=== PATIENT | female | born 1995 | race Caucasian/White ===

== ENCOUNTER 2022-11-28 21:47 | Emergency (ER) | payer OTHER ==
[~2022-11-28] VITALS: Ht 152.4 cm; Wt 92.1 kg
[2022-11-28] MEDS ORDERED: BACTRIM 400-801 EACH PO (22:06)
[2022-11-28] MEDS ORDERED: CEPHALEXIN500 MG PO (22:06)
[2022-11-28 22:09] VITALS: BP 129/74
== END 2022-11-28 22:09 | disposition home or self-care (01) ==
LOC: FSED 21:52
DX: L73.9 Follicular disorder, unspecified (principal)
CPT/HCPCS: 10060; 99283

== ENCOUNTER 2023-02-23 01:48 | Emergency (ER) | payer OTHER ==
[~2023-02-23] VITALS: Ht 149.9 cm; Wt 90.7 kg
[~2023-02-23 01:48] MED LIST: BACTRIM 400-801 EACH PO; CEPHALEXIN500 MG PO
[2023-02-23] MEDS ORDERED: IOPAMIDOL 370 MG/ML 100 ML INFUS..BTL INJ ONE (02:18)
[2023-02-23] MEDS ORDERED: ACETAMINOPHEN 325 MG TAB PO ONE (02:30)
[2023-02-23] MEDS ORDERED: ACETAMINOPHEN 325 MG TAB ONE (02:35)
[2023-02-23 04:30] VITALS: BP 124/76
== END 2023-02-23 04:30 | disposition home or self-care (01) ==
LOC: FSED 01:53
DX: S00.83XA Contusion of other part of head, initial encounter (principal); R07.89 Other chest pain; R10.10 Upper abdominal pain, unspecified; R51.9 Headache, unspecified; M25.531 Pain in right wrist; V43.52XA Car driver injured in collision with other type car in traffic accident, initial encounter; Y92.488 Other paved roadways as the place of occurrence of the external cause
CPT/HCPCS: 70450; 71260; 73110; 74177; 81025; 99283; Q9967